=== PATIENT | female | born 1975 ===

== ENCOUNTER 2021-04-25 14:05 | Outpatient (REF) | payer OTHER, SELFPAY ==
--- NOTE | 2021-04-25 17:43 | PFT_ITS ---
Forced vital capacity and FEV1 are both moderately reduced. ITB39-56, and MVV are markedly reduced. Post-bronchodilator therapy, there is significant improvement in all parameters. Total lung capacity is slightly decreased. Residual volume normal. Diffusion capacity normal. CONCLUSION: Moderately severe obstructive airway disorder. There is significant response to bronchodilator therapy. These findings are consistent with asthma/COPD overlap syndrome. Clinical correlation is recommended. MD FRANCISCO Husain/RAJWINDER / [phone]
== END 2021-04-25 14:06 | disposition home or self-care (01) ==
LOC: HO.RESP 14:05
PROVIDERS: Visit Provider Nurse Practitioner Family
DX: J45.909 Unspecified asthma, uncomplicated (principal)
CPT/HCPCS: 94060; 94727; 94729

== ENCOUNTER → 2021-05-24 15:07 | Outpatient (BNVA) | payer OTHER, SELFPAY | PROVIDERS: PCP Nurse Practitioner Family; Visit Provider Internal Medicine ==

== ENCOUNTER → 2021-07-25 14:59 | Outpatient (BNVA) | payer OTHER, SELFPAY | PROVIDERS: PCP Nurse Practitioner Family; Visit Provider Internal Medicine ==

== ENCOUNTER 2021-10-31 15:51 | Outpatient (REF) | payer OTHER, SELFPAY ==
--- NOTE | ~2021-10-31 | XR_ITS ---
EXAMINATION: XR CHEST CLINICAL INFORMATION: COPD COMPARISON: None TECHNIQUE: 2 views of the chest were obtained. FINDINGS: No significant abnormality is noted involving the heart, lungs, mediastinum, bony thorax or soft tissues. XR/XR chest 2V IMPRESSION: Unremarkable examination.
== END 2021-10-31 15:52 | disposition home or self-care (01) ==
LOC: HO.HMGCX 15:51
PROVIDERS: PCP Nurse Practitioner Family; Visit Provider Nurse Practitioner Family
DX: J44.9 Chronic obstructive pulmonary disease, unspecified (principal); J30.9 Allergic rhinitis, unspecified; J06.9 Acute upper respiratory infection, unspecified
CPT/HCPCS: 71046

== ENCOUNTER 2021-11-01 10:35 | Outpatient (REF) | payer OTHER, SELFPAY ==
[2021-11-01 11:28] LABS: MANUAL DIFF FLAG NO
[2021-11-01 11:43] LABS: Basophils Absolute Auto 0.1 X10*3/uL (0.0-0.2); Eosinophils Absolute Auto 0.5 X10*3/uL (0.0-0.4); Eosinophils Percent Auto 7.1 % (0-4); Hematocrit 38.5 % (37.0-47.0); Hemoglobin 12.5 g/dl (12.0-16.0); Imm Gran Abs Auto 0.03 X10*3/uL (0.00-0.03); Imm Gran Pct Auto 0.4 % (0.0-0.4); Lymphocytes Absolute Auto 1.2 X10*3/uL (1.2-4.9); Lymphocytes Percent Auto 16.6 % (20-40); Mean Corpuscular HGB Conc 32.5 g/dl (31.0-35.0); Mean Corpuscular Hemoglobin 27.7 pg (27.0-33.0); Mean Corpuscular Volume 85.2 fL (80.0-98.0); Mean Platelet Volume 10.3 fL (9.4-12.3); Monocytes Absolute Auto 0.9 X10*3/uL (0.1-1.2); Monocytes Percent Auto 13.1 % (2-11); Neutrophils Absolute Auto 4.4 x10*3/uL (2.0-8.3); Neutrophils Percent Auto 61.8 % (45-73); Platelet Count 296 X10*3/uL (160-400); Red Blood Count 4.52 X10*6/uL (4.20-5.50); Red Cell Distribution Width 13.8 % (11.0-16.0); White Blood Count 7.2 X10*3/uL (4.8-10.8)
[2021-11-01 12:18] LABS: Alanine Aminotransferase 20 U/L (0-31); Albumin Level 3.9 g/dL (3.5-5.0); Alkaline Phosphatase 63 U/L (39-117); Anion Gap 11 (12-20); Aspartate Amino Transferase 14 U/L (5-31); Bilirubin Total 0.7 mg/dL (0.0-1.0); Blood Urea Nitrogen 8 mg/dL (9-16); Calcium 9.2 mg/dL (8.4-10.2); Carbon Dioxide 24 mmol/L (22-29); Chloride 108 mmol/L (96-108); Cholesterol 157 mg/dL; Estimated Glomerular Filt Rate > 60; Glucose Fasting 122 mg/dL (60-99); HDL Cholesterol 60 mg/dL; LDL Cholesterol Calculated 82 mg/dl; Sodium 139 mmol/L (135-145); Total Protein 7.3 g/dL (6.5-8.0); Triglycerides 78 mg/dL
[2021-11-01 12:19] LABS: TSH reflex Free T4 1.99 uIU/mL (0.32-4.0)
[2021-11-01 14:05] LABS: Appearance Urine CLOUDY; Color Urine YELLOW; Glucose Urine UA NEG (NEG); Leukocyte Esterase Urine NEG (NEG); Nitrite Urine NEG (NEG); Specific Gravity - Urine >= 1.030 (1.005-1.025); Urine Blood NEG (NEG); Urine Ketones NEG (NEG); Urine Protein TRACE MG/DL (NEG-TRACE)
== END 2021-11-01 10:36 | disposition home or self-care (01) ==
LOC: HO.HMGCLDS 10:35
PROVIDERS: PCP Nurse Practitioner Family; Visit Provider Nurse Practitioner Family
DX: J44.9 Chronic obstructive pulmonary disease, unspecified (principal); J30.9 Allergic rhinitis, unspecified; J06.9 Acute upper respiratory infection, unspecified
CPT/HCPCS: 36415; 80053; 80061; 81003; 84443; 85025

== ENCOUNTER 2022-01-10 11:58 | Outpatient (REF) | payer OTHER, SELFPAY ==
--- NOTE | ~2022-01-10 | MM_ITS ---
EXAMINATION: MM SCREENING DIGITAL BREAST TOMOSYNTHESIS, BILATERAL CLINICAL INFORMATION: Screening. Asymptomatic. The lifetime risk of breast cancer based on the Tyrer-Cuzick Model is 11.2%. COMPARISON: Mammography: None TECHNIQUE: Digital breast tomosynthesis is performed in both the craniocaudal and mediolateral oblique views along with computer-aided detection (CAD). Synthesized 2D images are generated from the tomosynthesis. FINDINGS: The breasts are almost entirely fatty (ACR BI-RADS breast composition Category a). There are no significant masses, abnormal calcifications, or other abnormalities. MM/MM tomosynthesis screening BI IMPRESSION: No mammographic evidence of malignancy. ASSESSMENT: BI-RADS 1: Negative RECOMMENDATION: Routine annual mammography screening. This patient's information was entered into a reminder system with a target due date for their next mammogram.
== END 2022-01-10 11:59 | disposition home or self-care (01) ==
LOC: HO.MAMMO 11:58
PROVIDERS: Visit Provider Nurse Practitioner Family
DX: Z12.31 Encounter for screening mammogram for malignant neoplasm of breast (principal)
CPT/HCPCS: 77063; 77067

== ENCOUNTER → 2022-11-14 13:50 | Outpatient (BNVA) | payer BC, SELFPAY | PROVIDERS: PCP Nurse Practitioner Family; Visit Provider Internal Medicine ==

== ENCOUNTER 2023-04-17 11:07 | Outpatient (AMB) | payer BC, SELFPAY ==
[2023-04-17 11:16] VITALS: BP 130/78; PULSE 95; O2SAT 98; BMI 38.2
--- NOTE | 2023-04-17 11:16 | A.OFFVIS_ITS ---
Intake Vital Signs 04/17/23 11:16 Height 5 ft 2 in Weight 209 lb BMI 38.2 BP 130/78 Blood Pressure Location Lt brachial Position Sitting Pulse 95 Pulse Source Pulse Oximeter Pulse Oximetry (%) 98 Oxygen Delivery Method Room Air Intake Visit Reasons: Asthma Intake Note: pt is here for follow up and feels good. Department Assistant Required: No Allergies amoxicillin Adverse Reaction (Unknown, Verified 04/17/23 11:24) yeast infection Medication List - Last Reconciled 04/17/23 by Eunice Isidro MD albuterol sulfate 90 mcg/actuation 2 puffs PO Q6H PRN amlodipine 5 mg PO DAILY 90 days bisacodyl (Dulcolax (bisacodyl)) 10 mg (2 x 5 mg) PO ONCE 1 day cetirizine (Zyrtec) 10 mg PO DAILY PRN fluticasone propion-salmeterol 250-50 mcg/dose (Advair Diskus) 1 ea PO BID fluticasone propionate 50 mcg/actuation (Flonase Allergy Relief) 1 spray intranasal BID PRN hydrochlorothiazide 12.5 mg PO DAILY 90 days ipratropium-albuterol 0.5 mg-3 mg(2.5 mg base)/3 mL 3 mL inhalation Q6-8H PRN montelukast 10 mg PO BEDTIME nebulizer accessories Q6hrs, prn for wheezing/SOB polyethylene glycol 3350 (Miralax) 238 grams PO ONCE 1 day Do you need a note to return to daycare/school/sports/work: No HPI Asthma HPI Details 48 YEARS OLD FEMALE, A KNOWN CASE OF AST HMA/COPD AND ALLERGIC RHINITIS, HER 2 CATS AT HOME ,BEING THE MAIN TRIGGER COMES FOR FOLLOW-UP AFTER 6 MONTHS. SHE HAS BEEN VERY STABLE WITHOUT ANY INCREASE IN THE SYMPTOMS. GETS MILD NASAL CONGESTION OFF AND ON. GETS MILD SHORTNESS OF BREATH ON WALKING UP HILL OR. CLIMBING STAIRS HAS HAD NO ACUTE ATTACKS OF WHEEZING. SHE TRIES TO KEEP THE CATS AT A DISTANCE BUT IN THE HOUSE. [facility] Medical History COPD with asthma Allergic rhinitis Social History Housing: House Patient Tobacco Use Status: Former Tobacco user e-Cigarette/Vaping Use: Never Used Second Hand Smoke Exposure: No service: No Current occupational status: employed Current occupation: retail mgr Current occupational exposures/hazards: Yes Cognitive needs: No Hearing needs: No Vision needs: No Review of Systems Const All systems reviewed & are unremarkable except as noted in HPI and below Eyes Reports no additional complaints ENT Reports nasal congestion (MILD ALMOST ON DAILY BASIS) Card Denies chest pain, Denies irregular heart rhythm and Denies leg edema Resp Reports as per HPI GI Reports no additional complaints Reports no additional complaints Musc Reports no additional complaints Skin/Breast Reports system reviewed and no additional complaints, except as documented Neuro Reports no additional complaints Psych Reports no additional complaints Physical Exam Vital Signs: Last Vital Signs Pulse 95 04/17/23 11:16 BP 130/78 04/17/23 11:16 Pulse Ox 98 04/17/23 11:16 Oxygen Delivery Method Room Air 04/17/23 11:16 BMI result Body Mass Index 38.2 Const General: healthy appearing (Except for being overweight), comfortable, no acute distress, alert and awake Orientation/consciousness: patient oriented x3 HEENT Head: Yes normal to inspection General nose exam: No nasal polyps present, No nasal discharge present and Other nasal findings present (Mild nasal congestion) Face and sinus: Yes sinuses nontender Mouth: oropharynx normal Throat: Yes posterior oropharynx normal Eyes General: appearance normal, both eyes and all related structures Neck Neck: Yes normal visual inspection, Yes no lymphadenopathy, Yes trachea midline and Yes no JVD Thyroid: Thyroid normal Chest Chest palpation & inspection: normal inspection of the chest, normal palpation of entire chest wall and no tenderness Resp Other: Percussion note resonant, has good breath sounds on both sides. GOOD BREATH SOUNDS ON BOTH SIDES, NO WHEEZES OR CREPITATIONS ARE HEARD . Cardio Palpation: normal PMI Rate: regular rate Rhythm: regular rhythm Heart sounds: no gallops and no murmurs Peripheral pulses: Peripheral pulses 2+ throughout GI Palpation (GI): Soft to palpation, nontender, No hepatosplenomegaly present and no masses Auscultation: normal bowel sounds Back/Spine/Pelvis Thoracic/Lumbar Spine: thoracic and lumbar spine normal to inspection Skin General skin exam: no rashes or lesions noted Neuro General: patient oriented x3 and no focal motor deficits Cranial nerves: Yes CN's II-XII intact bilaterally Extrem General: Yes normal to inspection, Yes no clubbing, cyanosis or edema and Yes no calf tenderness Psych Appearance: grossly normal and well kempt Speech and movement: Normal speech and movement present Assessment & Plan Assessment & Plan (1) COPD with asthma: Comment: This patient has long-standing history of bronchial asthma, Which has now phased into chronic obstructive pulmonary disease. This is also in most part perpetuated by having cats in the house, plus other non identified triggers. TX : Again advised to keep the cats away , as much as possible, Advair, 250-50 1 inhalation b.i.d. Albuterol HFA 2 puffs Q 4-6 hours p.r.n. Montelukast 10 mg daily. Code(s): J44.9 - Chronic obstructive pulmonary disease, unspecified (2) Allergic rhinitis: Comment: This patient has long-standing history of allergic rhinitis, Most prominent trigger is pets ( 2 cats ) in the house. May have other multiple triggers also. I have given her a list of possible triggers that she should watch for. Patient is not inclined to remove the cats from the house. Meds : Flonase 2 spray each nostril daily Zyrtec 10 mg once a day only PRN . Also continue Montelukast 10 mg daily. Code(s): J30.9 - Allergic rhinitis, unspecified Coding Level of Care Code Est Pt Level 3 (88105) Diagnoses COPD with asthma J44.9 Allergic rhinitis J30.9
== END 2023-04-17 11:32 | disposition home or self-care (01) ==
PROVIDERS: PCP Nurse Practitioner Family; Visit Provider Internal Medicine
DX: J44.9 Chronic obstructive pulmonary disease, unspecified (principal); J30.9 Allergic rhinitis, unspecified
CPT/HCPCS: 99213

== ENCOUNTER → 2023-04-17 11:15 | Outpatient (BNV) | payer BC, SELFPAY | PROVIDERS: PCP Nurse Practitioner Family; Visit Provider Radiology Diagnostic Radiology | DX: Z12.31 Encounter for screening mammogram for malignant neoplasm of breast (principal) | CPT/HCPCS: 77063; 77067 ==

== ENCOUNTER 2023-04-17 11:37 | Outpatient (REF) | payer BC, SELFPAY ==
--- NOTE | ~2023-04-17 | MM_ITS ---
EXAMINATION: MM SCREENING DIGITAL BREAST TOMOSYNTHESIS, BILATERAL CLINICAL INFORMATION: Screening. Asymptomatic. COMPARISON: Mammography: This study is compared with prior exams dating back to 2021. TECHNIQUE: Digital breast tomosynthesis is performed in both the craniocaudal and mediolateral oblique views along with computer-aided detection (CAD). Synthesized 2D images are generated from the tomosynthesis. FINDINGS: The breasts are almost entirely fatty (ACR BI-RADS breast composition Category a). There are no significant masses, abnormal calcifications, or other abnormalities. MM/MM tomosynthesis screening BI IMPRESSION: No mammographic evidence of malignancy. ASSESSMENT: BI-RADS BI-RADS 1 - Negative RECOMMENDATION: Routine annual mammography screening. 1 year F/U This examination should not preclude the clinical evaluation of a suspicious palpable abnormality. This patient's information was entered into a reminder system with a target due date for their next mammogram.
== END 2023-04-17 11:38 | disposition home or self-care (01) ==
LOC: HO.MAMMO 11:37
PROVIDERS: PCP Nurse Practitioner Family; Visit Provider Nurse Practitioner Family
DX: Z12.31 Encounter for screening mammogram for malignant neoplasm of breast (principal)
CPT/HCPCS: 77063; 77067

== ENCOUNTER 2023-05-30 08:18 | Outpatient (AMB) | payer BC, SELFPAY ==
--- NOTE | 2023-05-30 08:25 | A.OFFPC_ITS ---
Vital Signs 05/30/23 08:33 Height 5 ft 2 in Weight 211 lb BMI 38.6 BP 120/76 Blood Pressure Location Rt brachial Position Sitting Pulse 67 Pulse Source Pulse Oximeter Pulse Oximetry (%) 97 Oxygen Delivery Method Room Air Intake Visit Reasons: PE/overdue Intake Note: Patient here for physical exam. Pt would like to talk about rash that appears on chest from wearing necklaces which are real gold, she has also been feeling exhausted and she also would like to talk about left arm sharp pain that happens on and off. Last Pap: unknown last mammo: 04/2023 at [facility] [place] Allergies amoxicillin Adverse Reaction (Unknown, Verified 05/30/23 08:36) yeast infection Medication List - Last Reconciled 05/30/23 by Jose Buchanan, [facility]- albuterol sulfate 90 mcg/actuation 2 puffs PO Q6H PRN amlodipine 5 mg PO DAILY 90 days betamethasone dipropionate 0.05% 1 appl topical BID PRN 14 days bisacodyl (Dulcolax (bisacodyl)) 10 mg (2 x 5 mg) PO ONCE 1 day cetirizine (Zyrtec) 10 mg PO DAILY PRN fluticasone propion-salmeterol 250-50 mcg/dose (Advair Diskus) 1 ea PO BID fluticasone propionate 50 mcg/actuation (Flonase Allergy Relief) 1 spray intranasal BID PRN hydrochlorothiazide 12.5 mg PO DAILY 90 days ipratropium-albuterol 0.5 mg-3 mg(2.5 mg base)/3 mL 3 mL inhalation Q6-8H PRN montelukast 10 mg PO BEDTIME nebulizer accessories Q6hrs, prn for wheezing/SOB polyethylene glycol 3350 (Miralax) 238 grams PO ONCE 1 day Tobacco use date assessed: 05/30/23 Dental Screening Dental Screen Date: 05/30/23 Did you have a dental visit in the last 12 months?: Yes Did you have a dental problem in the last 6 months where you did not have access to dental care?: No Was dental information given to patient?: Patient has dentist HPI PE/overdue HPI Details Pt is here for a PE. Will order labs. Mammo is up to date. 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 Pt has not heard from GI about scheduling her colon screen, will contact GI office. Pt reports dermatitis to her upper chest and left anti helix. Will send betamethasone. [facility] Medical History COPD with asthma Allergic rhinitis Social History Housing: House Patient Tobacco Use Status: Former Tobacco user e-Cigarette/Vaping Use: Never Used Second Hand Smoke Exposure: No service: No Current occupational status: employed Current occupation: [employer] Current occupational exposures/hazards: Yes Cognitive needs: No Hearing needs: No Vision needs: No Questionnaire PHQ-9 Over the last 2 weeks, how often have you been bothered by any of the following problems? 1. Little interest or pleasure in doing things: not at all 2. Feeling down, depressed, or hopeless: not at all 3. Trouble falling or staying asleep, or sleeping too much: several days 4. Feeling tired or having little energy: nearly every day 5. Poor appetite or overeating: not at all 6. Feeling bad about yourself - or that you are a failure or have let yourself or your family down: not at all 7. Trouble concentrating on things, such as reading the newspaper or watching television: not at all 8. Moving or speaking so slowly that other people could have noticed. Or the opposite - being so fidgety or restless that you have been moving around a lot more than usual: not at all 9. Thoughts that you would be better off or of hurting yourself in some way: not at all Total score: 4 Depression Screening Interpretation: Negative Depression Screening Done: Yes 22138 - PHQ-9 Billing: Yes Source: Developed by Drs. Brian Roblero, Melody Cates, Tray Mensah and colleagues, with an educational carlos a from [employer]. Thrive Questionnaire Date Thrive assessed: 05/30/23 I am a: Patient What is your living situation today?: I have a steady place to live Within the past 12 months, did the food you bought not last and you didn't have the money to get more?: Never true Within the past 12 months, did you worry whether your food would run out before you got money to buy more?: Never true Do you have trouble paying for medicines?: No Do you have trouble getting transportation to medical appointments?: No Do you have trouble paying your heating and electricity bill?: No Do you have trouble with day-to-day activities such as bathing, preparing meals, shopping, managing finances, etc.?: No Are you currently unemployed and looking for a job?: No Are you interested in more education?: No AUDIT C Alcohol Use Questionnaire (AUDIT-C) 1. How often do you have a drink containing alcohol?: Never 3. How often do you have six or more drinks on one occasion?: Never Total Score: 0 Score Reviewed/Action Taken: No JOSE L-7 AMB Questionnaire OJSE L-7 Date JOSE L - 7 assessed: 05/30/23 Feeling nervous, anxious, or on edge: 1 = Several days Not being able to stop or control worryin = Not at all Worrying too much about different things: 1 = Several days Trouble relaxin = Not at all Being so restless that it is hard to sit still: 0 = Not at all Becoming easily annoyed or irritable: 0 = Not at all Feeling afraid as if something awful might happen: 0 = Not at all Total JOSE L-7 score (0-4 normal; 5-9 mild; 10-14 moderate; 15-21 severe): 2 Source: Developed by Drs. Brian Roblero, Melody Cates, Tray Mensah and colleagues, with an educational carlos a from [employer]. JOSE L-7 Assessment Billing JOSE L-7 Assessment Tool: JOSE L-7 Assessment 14507 ACT Questionnaire In the past 4 weeks, how much of the time did your asthma keep you from getting as much done at work, school or at home?: All of the time During the past 4 weeks, how often have you had shortness of breath?: 3-6 times a week During the past 4 weeks, how often did your asthma symptoms wake you up at night or earlier than usual in the morning?: 2-3 nights a week During the past 4 weeks, how often have you had to use your rescue inhaler or nebulizer medication?: More than 3 times per day How would you rate your asthma control during the past 4 weeks?: Not controlled at all Score: 8 Review of Systems Const Denies chills and Denies fever(s) Eyes Denies blurry vision ENT Denies vertigo, Denies dizziness and Denies sore throat Card Denies chest pain at rest, Denies chest pain with activity, Denies diaphoresis, Denies dyspnea and Denies dyspnea on exertion Resp Denies cough, Denies dyspnea, Denies dyspnea on exertion and Denies wheezing GI Denies abdominal pain, Denies melena, Denies hematochezia, Denies constipation, Denies diarrhea and Denies loose stools Denies hematuria Musc Denies numbness and Denies tingling Skin/Breast Denies lesions Neuro Denies vertigo, Denies dizziness, Denies numbness and Denies tingling Psych Denies anxiety, Denies depression, Denies homicidal ideation, Denies suicidal ideation and Denies other (substance abuse) Aller/Immun Denies wheezing Physical exam (Primary Care) Vital Signs: Last Vital Signs Pulse 67 05/30/23 08:33 BP 120/76 05/30/23 08:33 Pulse Ox 97 05/30/23 08:33 Oxygen Delivery Method Room Air 05/30/23 08:33 BMI result Body Mass Index 38.6 Tobacco/Smoking Status: Tobacco use Status Tobacco use date assessed 05/30/23 05/30/23 08:39 Patient Tobacco Use Status Former Tobacco user 05/30/23 08:27 e-Cigarette/Vaping Use Never Used 05/30/23 08:27 PHQ-9: PHQ-9 Score PHQ-9: Total score 4 05/30/23 09:13 Depression Screening Interpretation: Negative Thrive Assessment: Date of Thrive Assessment Date Thrive assessed 05/30/23 05/30/23 09:04 Const General: cooperative Nutritional Appearance: obese Orientation/consciousness: patient oriented x3 HENMT Head: Yes normal to inspection, Yes normocephalic and Yes atraumatic Ears: TM's normal bilaterally Eyes General: appearance normal, both eyes and all related structures Alignment and Position: alignment normal and position normal Neck Neck: Yes normal visual inspection and Yes no lymphadenopathy Thyroid: Thyroid normal Resp Other: faint scattered wheezes Effort & Inspection: normal respiratory effort Cardio Rate: regular rate Rhythm: regular rhythm Heart sounds: S1 normal heart sound present, S2 normal heart sound present and no murmurs GI Palpation (GI): Soft to palpation and nontender Auscultation: normal bowel sounds Skin Other: faint dermatitis to upper chest, left anti helix with macular erythematous dermatitis Neuro General: patient oriented x3, moves all extremities, no focal motor deficits and deep tendon reflexes 2+ bilaterally Romberg Test: Negative Psych Appearance: grossly normal Mental Status: mental status grossly normal Speech and movement: Normal speech and movement present Affect: normal affect Attitude: cooperative Thought process: Normal thought process present Thought content: Normal thought content present Insight: Good insight present (Psych) Judgement: Good judgement present (Psych) Assessment and Plan Assessment & Plan (1) Physical exam: Code(s): Z00.00 - Encounter for general adult medical examination without abnormal findings Plan: Labs ordered (2) Dermatitis: Code(s): L30.9 - Dermatitis, unspecified Plan: Betamethasone sent Plan The patient agreed to the use of a medical lead for this encounter. Scribed for [facility] by Shena Thomas medical lead, on 05/30/2023 at 08:40 EST. Medications: New betamethasone dipropionate 0.05% 1 appl topical BID 14 days PRN 45 grams 2RF skin irritation Coding Level of Care Code Est Pt Prev Care 40-64y(37167) Diagnoses Physical exam Z00.00 Dermatitis L30.9 Additional Codes JOSE L-7 Assessment Billing - JOSE L-7 Assessment Tool: JOSE L-7 Assessment 20965 ([id number])
[2023-05-30 08:33] VITALS: BP 120/76; PULSE 67; O2SAT 97; BMI 38.6
== END 2023-05-30 09:06 | disposition home or self-care (01) ==
PROVIDERS: PCP Nurse Practitioner Family; Visit Provider Nurse Practitioner Family
DX: Z00.00 Encounter for general adult medical examination without abnormal findings (principal); L30.9 Dermatitis, unspecified
CPT/HCPCS: 99396

== ENCOUNTER 2024-01-08 13:44 | Outpatient (AMB) | payer BC, SELFPAY ==
--- NOTE | 2024-01-08 13:54 | MHC.OFFVIS ---
Vital Signs 01/08/24 13:55 Height 5 ft 2 in Weight 212 lb 11.937 oz BMI 38.9 BP 110/78 Blood Pressure Location Lt brachial Position Sitting Pulse 96 Pulse Source Pulse Oximeter Pulse Oximetry (%) 98 Oxygen Delivery Method Room Air Intake Visit Reasons: Asthma Intake Note: pt is here for follow up and states she is feeling like she is not rested in am, she snores, witnessed snoring. Pin Inserter Regulator Required: No Allergies isopropyl alcohol Adverse Reaction (Severe, Verified 01/08/24 14:03) numbness wherever it touches the skin amoxicillin Adverse Reaction (Unknown, Verified 01/08/24 14:03) yeast infection Medication List - Last Reconciled 01/08/24 by Eunice Isidro MD albuterol sulfate 90 mcg/actuation 2 puffs PO Q6H PRN amlodipine 5 mg PO DAILY 90 days betamethasone dipropionate 0.05% 1 appl topical BID PRN 14 days bisacodyl (Dulcolax (bisacodyl)) 10 mg (2 x 5 mg) PO ONCE 1 day bisacodyl (Dulcolax (bisacodyl)) 20 mg (4 x 5 mg) PO ONCE 1 day cetirizine (Zyrtec) 10 mg PO DAILY PRN fluticasone propion-salmeterol 250-50 mcg/dose (Advair Diskus) 1 ea PO BID fluticasone propionate 50 mcg/actuation (Flonase Allergy Relief) 1 spray intranasal BID PRN hydrochlorothiazide 12.5 mg PO DAILY 90 days ipratropium-albuterol 0.5 mg-3 mg(2.5 mg base)/3 mL 3 mL inhalation Q6-8H PRN montelukast 10 mg PO BEDTIME nebulizer accessories Q6hrs, prn for wheezing/SOB polyethylene glycol 3350 (Miralax) 238 grams PO ONCE 1 day polyethylene glycol 3350 (Miralax) 238 grams PO ONCE 1 day Do you need a note to return to daycare/school/sports/work: No HPI HPI Asthma: Details: 48 YEARS OLD FEMALE IS HERE FOR FOLLOW-UP MAINLY FOR HER CHRONIC BRONCHIAL ASTHMA. SHE ALSO HAS MILD ALLERGIC RHINITIS WHICH REMAINS WELL CONTROLLED. ASTHMA ALSO HAS BEEN WELL CONTROLLED AND SHE NEEDS TO USE, ALBUTEROL HFA ONLY ONCE IN A WHILE. SIMILARLY SHE NEEDS TO USE FLONASE ONLY ONCE IN A WHILE NOT EVERY DAY. CURRENTLY SHE IS USING WIXELA 250-50 2 PUFFS 1 INHALATION B.I.D.., AND ALBUTEROL HFA 2 PUFFS Q 6 HOURS P.R.N.. SHE ALSO USES DUONEB UPDRAFT WHICH SHE HAS AT HOME BUT ONLY RARELY. PATIENT FOR ALLERGY ISSUES SHE IS ON MONTELUKAST. 10 MG DAILY SHE REMAINS GROSSLY OVERWEIGHT, HAD HIS SLEEP STUDY AND THE SLEEP LAB IN 2007 WHICH WAS NEGATIVE FOR SLEEP APNEA, TODAY AGAIN SHE IS COMPLAINING OF NONRESTORATIVE SLEEP, WHEN SHE WAKES UP IN THE MORNING SHE FEELS TIRED. AND SLEEPY HOWEVER SHE KEEPS HERSELF BUSY IN WORK BUT WHEN COMES HOME AT 04:00 O'CLOCK SHE GOES TO SLEEP . WHEN SHE IS HOME ESPECIALLY ON THE WEEKENDS SHE DEFINITELY FEELS SLEEPY IF SHE IS SITTING AND READING OR WATCHING TV OR JUST LYING DOWN IN THE AFTERNOON. EPWORTH SLEEPINESS SCALE COMES TO 12. [facility] Medical History (Updated 01/08/24 @ 14:28 by Eunice Isidro MD) Somnolence, daytime Snoring Obesity (BMI 35.0-39.9 without comorbidity) COPD with asthma Allergic rhinitis Social History Housing: House Patient Tobacco Use Status: Former Tobacco user e-Cigarette/Vaping Use: Never Used Second Hand Smoke Exposure: No service: No Current occupational status: employed Current occupation: retail mgr Current occupational exposures/hazards: Yes Cognitive needs: No Hearing needs: No Vision needs: No Review of Systems Const All systems reviewed & are unremarkable except as noted in HPI and below Eyes Reports no additional complaints ENT Reports nasal congestion (MILD ALMOST ON DAILY BASIS) Card Denies chest pain, Denies irregular heart rhythm and Denies leg edema Resp Reports as per HPI GI Reports no additional complaints Reports no additional complaints Musc Reports no additional complaints Skin/Breast Reports system reviewed and no additional complaints, except as documented Neuro Reports no additional complaints Psych Reports no additional complaints Physical Exam Const General: healthy appearing (Except for being overweight), comfortable, no acute distress, alert and awake Orientation/consciousness: patient oriented x3 HEENT Head: Yes normal to inspection General nose exam: No nasal polyps present, No nasal discharge present and Other nasal findings present (Mild nasal congestion) Face and sinus: Yes sinuses nontender Mouth: oropharynx abnormals (OROPHARYNX IS CROWDED, MALLAMPATI CLASS 4) Throat: Yes posterior oropharynx normal Eyes General: appearance normal, both eyes and all related structures Neck Neck: Yes normal visual inspection, Yes no lymphadenopathy, Yes trachea midline, Yes no JVD and Yes other (NECK CIRCUMFERENCE 15 IN) Thyroid: Thyroid normal Chest Chest palpation & inspection: normal inspection of the chest, normal palpation of entire chest wall and no tenderness Resp Other: Percussion note resonant, has good breath sounds on both sides. NO WHEEZES OR CREPITATIONS ARE HEARD . Cardio Palpation: normal PMI Rate: regular rate Rhythm: regular rhythm Heart sounds: no gallops and no murmurs Peripheral pulses: Peripheral pulses 2+ throughout GI Palpation (GI): Soft to palpation, nontender, No hepatosplenomegaly present and no masses Auscultation: normal bowel sounds Back/Spine/Pelvis Thoracic/Lumbar Spine: thoracic and lumbar spine normal to inspection Skin General skin exam: no rashes or lesions noted Neuro General: patient oriented x3 and no focal motor deficits Cranial nerves: Yes CN's II-XII intact bilaterally Extrem General: Yes normal to inspection, Yes no clubbing, cyanosis or edema and Yes no calf tenderness Psych Appearance: grossly normal and well kempt Speech and movement: Normal speech and movement present Assessment & Plan Assessment & Plan (1) COPD with asthma: Comment: This patient has long-standing history of bronchial asthma, Which has now phased into chronic obstructive pulmonary disease. This is also in most part perpetuated by having cats in the house, plus other non identified triggers. Code(s): J44.9 - Chronic obstructive pulmonary disease, unspecified Category: Medical Plan: [place] : Again advised to keep the cats away , as much as possible, Wixela 250-50 1 inhalation b.i.d. Albuterol HFA 2 puffs Q 4-6 hours p.r.n. Montelukast 10 mg daily. (2) Allergic rhinitis: Comment: This patient has long-standing history of allergic rhinitis, Most prominent trigger is pets ( 2 cats ) in the house. May have other multiple triggers also. I have given her a list of possible triggers that she should watch for. Patient is not inclined to remove the cats from the house. Code(s): J30.9 - Allergic rhinitis, unspecified Category: Medical Plan: Meds : Flonase 2 spray each nostril daily Zyrtec 10 mg once a day only PRN . Also continue Montelukast 10 mg daily. (3) Obesity (BMI 35.0-39.9 without comorbidity): Comment: Remains grossly overweight, this puts her at risk for obstructive sleep apnea. Code(s): E66.9 - Obesity, unspecified Category: Medical Plan: Talked to her about controlling diet and should do exercise daily. (4) Snoring: Comment: Complains of loud snoring at night, as told by. Her boyfriend Code(s): R06.83 - Snoring Category: Medical Plan: This is another indication that she may have sleep apnea, she Plan is to order. A home-based sleep study (5) Somnolence, daytime: Comment: She has significant daytime sleepiness. [place] Sleepiness scale 12/24 Code(s): R40.0 - Somnolence Category: Medical Plan: Discussed with her and she would like to undergo sleep study, which is being ordered. Had a good discussion about obstructive sleep apnea and various options to treat. The best option in her case may be weight loss, Further plans were made after the sleep study is completed. Orders: Orders RT home sleep study Today E66.9 - Obesity, unspecified, R06.83 - Snoring, R40.0 - Somnolence Coding Level of Care Code Est Pt Level 4 (72573) Diagnoses COPD with asthma J44.9 Allergic rhinitis J30.9 Obesity (BMI 35.0-39.9 without comorbidity) E66.9 Snoring R06.83 Somnolence, daytime R40.0
[2024-01-08 13:55] VITALS: BP 110/78; PULSE 96; O2SAT 98; BMI 38.9
== END 2024-01-08 14:18 | disposition home or self-care (01) ==
PROVIDERS: PCP Nurse Practitioner Family; Visit Provider Internal Medicine
DX: J44.9 Chronic obstructive pulmonary disease, unspecified (principal); J30.9 Allergic rhinitis, unspecified; E66.9 Obesity, unspecified; R06.83 Snoring; R40.0 Somnolence
CPT/HCPCS: 99214

== ENCOUNTER → 2024-01-08 13:44 | Outpatient (BNVA) | payer BC, SELFPAY | PROVIDERS: PCP Nurse Practitioner Family; Visit Provider Internal Medicine ==

== ENCOUNTER → 2024-02-25 13:05 | Outpatient (REF) | payer BC, SELFPAY | LOC: HO.SL 13:05 | PROVIDERS: PCP Nurse Practitioner Family; Visit Provider Internal Medicine | DX: Z13.89 Encounter for screening for other disorder (principal) ==

== ENCOUNTER → 2024-04-21 13:01 | Outpatient (REF) | payer BC, SELFPAY | LOC: HO.SL 13:01 | PROVIDERS: PCP Nurse Practitioner Family; Visit Provider Internal Medicine | DX: R40.0 Somnolence (principal); R06.83 Snoring; E66.9 Obesity, unspecified | CPT/HCPCS: 95806 ==

== ENCOUNTER 2024-04-29 15:49 | Outpatient (AMB) | payer BC, SELFPAY ==
[2024-04-29 15:58] VITALS: BP 128/80; PULSE 82; O2SAT 98; BMI 37.7
--- NOTE | 2024-04-29 15:58 | A.OFFVIS_ITS ---
Vital Signs 04/29/24 15:58 Height 5 ft 2 in Weight 206 lb 2.115 oz BMI 37.7 BP 128/80 Blood Pressure Location Rt brachial Position Sitting Pulse 82 Pulse Oximetry (%) 98 Oxygen Delivery Method Room Air Intake Visit Reasons: asthma/karen Translator Interpreter Required: No Game Programmer: Game Programmer offered & declined Accompanied by: Self / Same As Patient Allergies isopropyl alcohol Adverse Reaction (Severe, Verified 04/29/24 16:06) numbness wherever it touches the skin amoxicillin Adverse Reaction (Unknown, Verified 04/29/24 16:06) yeast infection Medication List - Last Reconciled 04/29/24 by Eunice Isidro MD albuterol sulfate 90 mcg/actuation 2 puffs PO Q6H PRN amlodipine 5 mg PO DAILY 90 days betamethasone dipropionate 0.05% 1 appl topical BID PRN 14 days bisacodyl (Dulcolax (bisacodyl)) 10 mg (2 x 5 mg) PO ONCE 1 day bisacodyl (Dulcolax (bisacodyl)) 20 mg (4 x 5 mg) PO ONCE 1 day cetirizine (Zyrtec) 10 mg PO DAILY PRN fluticasone propion-salmeterol 250-50 mcg/dose (Advair Diskus) 1 ea PO BID fluticasone propionate 50 mcg/actuation (Flonase Allergy Relief) 1 spray intranasal BID PRN hydrochlorothiazide 12.5 mg PO DAILY 90 days ipratropium-albuterol 0.5 mg-3 mg(2.5 mg base)/3 mL 3 mL inhalation Q6-8H PRN montelukast 10 mg PO BEDTIME nebulizer accessories Q6hrs, prn for wheezing/SOB polyethylene glycol 3350 (Miralax) 238 grams PO ONCE 1 day polyethylene glycol 3350 (Miralax) 238 grams PO ONCE 1 day Do you need a note to return to daycare/school/sports/work: No HPI HPI asthma/karen: Details: EDALIN 49 YEARS OLD FEMALE GROSSLY OBESE, AND WITH HISTORY OF BRONCHIAL ASTHMA IS HERE FOR FOLLOW-UP, SHE HAD A BOUT OF ACUTE BRONCHITIS WITH INCREASED COUGH AND WHEEZING LAST WEEK, SEEN IN THE URGENT CARE AND PRESCRIBED SHORT COURSE OF PREDNISONE AND Z-MEGAN. SHE HAS COMPLETED THIS COURSE AND FEELS BETTER, BUT STILL HAS MILD RESIDUAL COUGH. SHE CONTINUES TO USE HER WIXELA 250-50 B.I.D., USES FLONASE DAILY, AND ALSO CETIRIZINE 10 MG ONCE A DAY P.R.N. SLEEP REMAINS DISTURBED , DUE TO HEAVY SNORING, AND HAS ONLY MILD DAYTIME SLEEP INESS. HOME-BASED SLEEP STUDY WAS DONE OVER THE WEEKEND AND THE RESULTS WILL BE DESCRIBED BELOW. [facility] Medical History (Updated 04/29/24 @ 16:23 by Eunice Isidro MD) KAREN (obstructive sleep apnea) Somnolence, daytime Snoring Obesity (BMI 35.0-39.9 without comorbidity) COPD with asthma Allergic rhinitis Social History (Updated 04/29/24 @ 16:02 by Shabnam Goode LPN) Housing: House Patient Tobacco Use Status: Former Tobacco user e-Cigarette/Vaping Use: Never Used Second Hand Smoke Exposure: No service: No Current occupational status: employed Current occupation: retail [employer] Current occupational exposures/hazards: Yes Cognitive needs: No Hearing needs: No Vision needs: No Review of Systems Const All systems reviewed & are unremarkable except as noted in HPI and below Eyes Reports no additional complaints ENT Reports nasal congestion (MILD ALMOST ON DAILY BASIS) Card Denies chest pain, Denies irregular heart rhythm and Denies leg edema Resp Reports as per HPI GI Reports no additional complaints Reports no additional complaints Musc Reports no additional complaints Skin/Breast Reports system reviewed and no additional complaints, except as documented Neuro Reports no additional complaints Psych Reports no additional complaints Physical Exam Vital Signs: Last Vital Signs Pulse 82 04/29/24 15:58 BP 128/80 04/29/24 15:58 Pulse Ox 98 04/29/24 15:58 Oxygen Delivery Method Room Air 04/29/24 15:58 BMI result Body Mass Index 37.7 Const General: healthy appearing (Except for being overweight), comfortable, no acute distress, alert and awake Orientation/consciousness: patient oriented x3 HEENT Head: Yes normal to inspection General nose exam: No nasal polyps present, No nasal discharge present and Other nasal findings present (Mild nasal congestion) Face and sinus: Yes sinuses nontender Mouth: oropharynx abnormals (OROPHARYNX IS CROWDED, MALLAMPATI CLASS 4) Throat: Yes posterior oropharynx normal Eyes General: appearance normal, both eyes and all related structures Neck Neck: Yes normal visual inspection, Yes no lymphadenopathy, Yes trachea midline, Yes no JVD and Yes other (NECK CIRCUMFERENCE 15 IN) Thyroid: Thyroid normal Chest Chest palpation & inspection: normal inspection of the chest, normal palpation of entire chest wall and no tenderness Resp Other: Percussion note resonant, has good breath sounds on both sides. A few fine inspiratory wheezes heard over the upper part of the chest, no crepitations. Cardio Palpation: normal PMI Rate: regular rate Rhythm: regular rhythm Heart sounds: no gallops and no murmurs Peripheral pulses: Peripheral pulses 2+ throughout GI Palpation (GI): Soft to palpation, nontender, No hepatosplenomegaly present and no masses Auscultation: normal bowel sounds Back/Spine/Pelvis Thoracic/Lumbar Spine: thoracic and lumbar spine normal to inspection Skin General skin exam: no rashes or lesions noted Neuro General: patient oriented x3 and no focal motor deficits Cranial nerves: Yes CN's II-XII intact bilaterally Extrem General: Yes normal to inspection, Yes no clubbing, cyanosis or edema and Yes no calf tenderness Psych Appearance: grossly normal and well kempt Speech and movement: Normal speech and movement present Results Reviewed Results Reviewed: Home-based sleep study. Total sleep time AHI 6.3, supine AHI 10, snoring for 62% of the sleep time. Assessment & Plan Assessment & Plan (1) Obesity (BMI 35.0-39.9 without comorbidity): Comment: Remains grossly overweight, this puts her at risk for obstructive sleep apnea. Code(s): E66.9 - Obesity, unspecified Category: Medical Plan: Talked about the weight and advise that she should lose about 10 lb at lease by the next visit. (2) KAREN (obstructive sleep apnea): Comment: Sleep study shows that she does have obstructive sleep apnea but mild with total sleep time AHI 6.3. Is mostly positional. Code(s): G47.33 - Obstructive sleep apnea (adult) (pediatric) Category: Medical Plan: Discussed about the treatment plan and because her KAREN is mild and mostly positional she should try conservative measures to start with. LOSE ABOUT 10 LB OF WEIGHT. TRY TO SLEEP IN LATERAL POSITION, MAY USE A WEDGE OR A LARGE PILLOW IN THE MIDDLE OF THE BED. WILL RECHECK IN 3 MONTHS AND IF SHE REMAINS SYMPTOMATIC THEN THE NEXT STEP WOULD BE TO START HER ON CPAP THERAPY. (3) Allergic rhinitis: Comment: This patient has long-standing history of allergic rhinitis, Most prominent trigger is pets ( 2 cats ) in the house. May have other multiple triggers also. I have given her a list of possible triggers that she should watch for. Patient is not inclined to remove the cats from the house. Code(s): J30.9 - Allergic rhinitis, unspecified Category: Medical Plan: CONTINUE FLONASE NASAL SPRAY 2 SPRAY IN EACH NOSTRIL DAILY AT NIGHT MAY TAKES ZYRTEC 10 MG HALF OR 1 TABLET ONCE A DAY P.R.N. (4) Asthma: Comment: Bronchial asthma goes along with allergic rhinitis. Two cats in the house seem to be the most likely cause of her bronchial asthma. As she would not get rid of the cats I advised that at least keep them out of the BED ROOM . Code(s): J45.909 - Unspecified asthma, uncomplicated Category: Medical Plan: Meds: Advair 250-50 1 inhalation ,use BID . regularly Montelukast 10 mg once a day . ProAir 2 puffs Q 4-6 hours p.r.n..SCRIPT SENT Coding Level of Care Code Est Pt Level 3 (10896) Diagnoses Obesity (BMI 35.0-39.9 without comorbidity) E66.9 KAREN (obstructive sleep apnea) G47.33 Allergic rhinitis J30.9 Asthma J45.909
== END 2024-04-29 16:16 | disposition home or self-care (01) ==
LOC: HO.HPS 15:50
PROVIDERS: PCP Nurse Practitioner Family; Visit Provider Internal Medicine
DX: E66.9 Obesity, unspecified (principal); G47.33 Obstructive sleep apnea (adult) (pediatric); J30.9 Allergic rhinitis, unspecified; J45.909 Unspecified asthma, uncomplicated
CPT/HCPCS: 99213

== ENCOUNTER 2024-08-05 14:31 | Outpatient (REF) | payer BC, SELFPAY ==
[2024-08-05 16:11] LABS: MANUAL DIFF FLAG NO
[2024-08-05 16:15] LABS: Appearance Urine Turbid; Color Urine Yellow; Glucose Urine UA Negative (Negative); Leukocyte Esterase Urine Negative (Negative); Nitrite Urine Negative (Negative); Specific Gravity - Urine >= 1.030 (1.005-1.025); Urine Blood Negative (Negative); Urine Ketones Negative (Negative); Urine Protein Trace mg/dL (Neg-Trace)
[2024-08-05 16:21] LABS: Basophils Absolute Auto 0.1 X10*3/uL (0.0-0.2); Basophils Percent Auto 0.9 % (0-2); Eosinophils Absolute Auto 0.5 X10*3/uL (0.0-0.4); Eosinophils Percent Auto 6.2 % (0-4); Hematocrit 35.1 % (37.0-47.0); Hemoglobin 11.2 g/dl (12.0-16.0); Imm Gran Abs Auto 0.03 X10*3/uL (0.00-0.03); Imm Gran Pct Auto 0.3 % (0.0-0.4); Lymphocytes Absolute Auto 2.6 X10*3/uL (1.2-4.9); Lymphocytes Percent Auto 29.9 % (20-40); Mean Corpuscular HGB Conc 31.9 g/dl (31.0-35.0); Mean Corpuscular Hemoglobin 25.6 pg (27.0-33.0); Mean Corpuscular Volume 80.1 fL (80.0-98.0); Mean Platelet Volume 10.3 fL (9.4-12.3); Monocytes Absolute Auto 0.7 X10*3/uL (0.1-1.2); Monocytes Percent Auto 7.5 % (2-11); Neutrophils Absolute Auto 4.8 x10*3/uL (2.0-8.3); Neutrophils Percent Auto 55.2 % (45-73); Platelet Count 270 X10*3/uL (160-400); Red Blood Count 4.38 X10*6/uL (4.20-5.50); White Blood Count 8.8 X10*3/uL (4.8-10.8)
[2024-08-05 16:50] LABS: Alanine Aminotransferase 19 U/L (0-31); Albumin Level 3.9 g/dL (3.5-5.0); Alkaline Phosphatase 58 U/L (39-117); Anion Gap 10 (12-20); Aspartate Amino Transferase 19 U/L (5-31); Bilirubin Total 0.6 mg/dL (0.0-1.0); Blood Urea Nitrogen 7 mg/dL (9-16); Calcium 8.2 mg/dL (8.4-10.2); Carbon Dioxide 22 mmol/L (22-29); Chloride 110 mmol/L (96-108); Cholesterol 142 mg/dL (<200); Estimated Glomerular Filt Rate > 60; Glucose Fasting 144 mg/dL (60-99); HDL Cholesterol 56 mg/dL (>40); LDL Cholesterol Calculated 74 mg/dL (<100); Potassium 3.6 mmol/L (3.3-5.1); Sodium 138 mmol/L (135-145); Total Protein 7.5 g/dL (6.5-8.0); Triglycerides 61 mg/dL (<150)
[2024-08-05 17:09] LABS: TSH reflex Free T4 1.84 uIU/mL (0.32-4.0); Vitamin D 25-OH Total 9.3 ng/mL (>30)
== END 2024-08-05 14:32 | disposition home or self-care (01) ==
LOC: HO.HMGCLDS 14:31
PROVIDERS: PCP Nurse Practitioner Family; Visit Provider Nurse Practitioner Family
DX: Z00.00 Encounter for general adult medical examination without abnormal findings (principal); E55.9 Vitamin D deficiency, unspecified; Z13.6 Encounter for screening for cardiovascular disorders
CPT/HCPCS: 36415; 80053; 80061; 81003; 82306; 84443; 85025

== ENCOUNTER 2024-08-19 08:33 | Outpatient (AMB) | payer BC, SELFPAY ==
[2024-08-19 08:39] VITALS: BP 138/82; PULSE 87; TEMP 37; O2SAT 97
--- NOTE | 2024-08-19 08:39 | A.OFFPC_ITS ---
Vital Signs 08/19/24 08:39 Height 5 ft 2 in Weight 20 lb BMI 3.7 BP 138/82 Blood Pressure Location Lt brachial Position Sitting Pulse 87 Pulse Source Pulse Oximeter Temp 98.6 F Temp Source Oral Pulse Oximetry (%) 97 Oxygen Delivery Method Room Air Intake Visit Reasons: PE Intake Note: Pt is here today for her annual Physical. Allergies isopropyl alcohol Adverse Reaction (Severe, Verified 08/19/24 08:55) numbness wherever it touches the skin amoxicillin Adverse Reaction (Unknown, Verified 08/19/24 08:55) yeast infection Medication List - Last Reconciled 08/19/24 by Jose Buchanan, WORKERS' COMPENSATION HEARINGS OFFICER- albuterol sulfate 90 mcg/actuation 2 puffs PO Q6H PRN amlodipine 5 mg PO DAILY 90 days betamethasone dipropionate 0.05% 1 appl topical BID PRN 14 days cetirizine (Zyrtec) 10 mg PO DAILY PRN fluticasone propion-salmeterol 250-50 mcg/dose (Advair Diskus) 1 ea PO BID fluticasone propionate 50 mcg/actuation (Flonase Allergy Relief) 1 spray intranasal BID PRN hydrochlorothiazide 12.5 mg PO DAILY ipratropium-albuterol 0.5 mg-3 mg(2.5 mg base)/3 mL 3 mL inhalation Q6-8H PRN montelukast 10 mg PO BEDTIME nebulizer accessories Q6hrs, prn for wheezing/SOB Tobacco use date assessed: 08/19/24 Dental Screening Dental Screen Date: 08/19/24 Did you have a dental visit in the last 12 months?: Yes Did you have a dental problem in the last 6 months where you did not have access to dental care?: No Was dental information given to patient?: Patient has dentist HPI PE HPI Details History of Present Illness PE: The patient is a 49-year-old female presenting with concerns related to anemia, perimenopausal symptoms, and newly diagnosed Type 2 Diabetes Mellitus. Her recent lab results indicated anemia, and she has been experiencing heavier and irregular periods as associated with ? perimenopausal changes. Her fasting blood sugar was noted at 144 mg/dL, categorizing her as diabetic. She has been informed about the importance of reducing soda intake as part of managing her blood sugar levels. She denies symptoms of polyuria, polydipsia, and neuropathy, with intact sensation in her feet. She has missed previous mammogram and colorectal screening appointments, which are due for rescheduling. Health Maintenance - Referral placed for ophthalmology for diabetic eye examination. - Patient informed on reducing soda cons umption to manage diabetes. - Referral to nurse navigator for diabet es education. - Follow-up mammogram and colorectal scr eening referrals placed. Social History - Consumes soda daily despite diabetes d iagnosis; planning to reduce immediately. Review of Systems - Cardiovascular: Denies any chest pain or shortness of breath. - Gastrointestinal: Denies abdominal suzan n, blood in stool, constipation, or diarrhea. - Neurological: Denies severe fatigue or dizziness. - Endocrine: Reports fasting blood sugar of 144 mg/dL indicating diabetes. - Hematological: Denies any new bleeding ; notes heavier periods. - Psychiatric: Denies any suicidal or ho micidal ideation. Physical Exam General: Cooperative, healthy appearing, comfortable, no acute distress and well developed, obese Orientation: Patient oriented x3 Limitations: No limitations Head: Normal to inspection Ears: Hearing grossly normal bilaterally Nose: Normal external nose present Face and sinus: Normal facial exam Eyes: Appearance normal, both eyes and all related structures Neck: Normal visual inspection and Yes full ROM Respiratory: Normal respiratory effort and able to speak in complete sentences. Clear to auscultation bilaterally Cardiovascular: Regular rate and rhythm. Normal S1 and S2 GI: Normal to inspection. Soft to palpation and nontender Skin: No rashes or lesions noted Neuro: Patient oriented x3 Extremities: Normal to inspection, feet intact bilaterally, positive sensation with use of monofilament Results - Labs: Slight anemia reported; fasting blood sugar 144 mg/dL. Plan Management will involve further evaluation of anemia and symptoms related to perimenopause. Type 2 Diabetes Mellitus will be monitored through additional labs such as A1c and microalbumin, alongside educational support. An ophthalmology referral has been made for diabetic eye health. The patient will reduce soda consumption, and follow-up appointments for mammogram and colon screening have been recommended after previous cancellations. Discussion Notes I discussed the patient's recent diagnosis of anemia and possible perimenopausal symptoms, recommending further lab tests to evaluate these conditions. The new diagnosis of Type 2 Diabetes Mellitus requires additional testing, including an A1c and microalbumin test, and education by a nurse navigator concerning dietary changes and glucose monitoring. I emphasized the importance of reducing soda intake to manage diabetes. Referrals were made for an ophthalmology exam to prevent diabetes-related eye issues, as well as for a follow-up mammogram and colon screening. Follow-up in 4 months was agreed upon, and the patient voiced understanding and support for the outlined management plan. Patient Instructions - Reduce daily soda consumption to help manage diabetes. - Schedule and attend a follow-up mammog paige. - Follow through with the ophthalmology referral for diabetic eye health. - Attend the open access colon screening appointment. - Participate in diabetes education sess ions with the nurse navigator. - Utilize the glucometer if willing, to monitor blood glucose levels. - Return in 4 months for follow-up care. [facility] Medical History KAREN (obstructive sleep apnea) Somnolence, daytime Snoring Obesity (BMI 35.0-39.9 without comorbidity) COPD with asthma Allergic rhinitis Social History Housing: House Patient Tobacco Use Status: Former Tobacco user e-Cigarette/Vaping Use: Never Used Second Hand Smoke Exposure: No service: No Current occupational status: employed Current occupation: retail [employer] Current occupational exposures/hazards: Yes Cognitive needs: No Hearing needs: No Vision needs: No Questionnaire PHQ-9 Over the last 2 weeks, how often have you been bothered by any of the following problems? 1. Little interest or pleasure in doing things: not at all 2. Feeling down, depressed, or hopeless: not at all 3. Trouble falling or staying asleep, or sleeping too much: several days 4. Feeling tired or having little energy: several days 5. Poor appetite or overeating: not at all 6. Feeling bad about yourself - or that you are a failure or have let yourself or your family down: not at all 7. Trouble concentrating on things, such as reading the newspaper or watching television: not at all 8. Moving or speaking so slowly that other people could have noticed. Or the opposite - being so fidgety or restless that you have been moving around a lot more than usual: not at all 9. Thoughts that you would be better off or of hurting yourself in some way: not at all Total score: 2 Depression Screening Interpretation: Negative Depression Screening Done: Yes 65377 - PHQ-9 Billing: Yes Source: Developed by Drs. Brian Roblero, Melody Cates, Tray Mensah and colleagues, with an educational carlos a from [employer]. Thrive Questionnaire Date Thrive assessed: 08/19/24 I am a: Patient What is your living situation today?: I have a steady place to live Within the past 12 months, did the food you bought not last and you didn't have the money to get more?: Never true Within the past 12 months, did you worry whether your food would run out before you got money to buy more?: Never true Do you have trouble paying for medicines?: No Do you have trouble getting transportation to medical appointments?: No Do you have trouble paying your heating and electricity bill?: No Do you have trouble taking care of your child, family member or friend?: No Do you have trouble with day-to-day activities such as bathing, preparing meals, shopping, managing finances, etc.?: No Are you currently unemployed and looking for a job?: No Are you interested in more education?: No Please select the resources that you would like help with: None Currently or been in a relationship where the following occur: No concerns re ported THRIVE Score: 0 AUDIT C Alcohol Use Questionnaire (AUDIT-C) 1. How often do you have a drink containing alcohol?: Monthly or less 2. How many drinks containing alcohol do you have on a typical day when you are drinking?: 1 or 2 3. How often do you have six or more drinks on one occasion?: Never Total Score: 1 Score Reviewed/Action Taken: Yes JOSE L-7 AMB Questionnaire JOSE L-7 Date JOSE L - 7 assessed: 08/19/24 Feeling nervous, anxious, or on edge: 0 = Not at all Not being able to stop or control worryin = Not at all Worrying too much about different things: 1 = Several days Trouble relaxin = Several days Being so restless that it is hard to sit still: 1 = Several days Becoming easily annoyed or irritable: 1 = Several days Feeling afraid as if something awful might happen: 0 = Not at all Total JOSE L-7 score (0-4 normal; 5-9 mild; 10-14 moderate; 15-21 severe): 4 Source: Developed by Drs. Brian Roblero, Melody Cates, Tray Mensah and colleagues, with an educational carlos a from [employer]. JOSE L-7 Assessment Billing JOSE L-7 Assessment Tool: JOSE L-7 Assessment 36180 Physical exam (Primary Care) Vital Signs: Last Vital Signs Temp 98.6 F 08/19/24 08:39 Pulse 87 08/19/24 08:39 BP 138/82 08/19/24 08:39 Pulse Ox 97 08/19/24 08:39 Oxygen Delivery Method Room Air 08/19/24 08:39 BMI result Body Mass Index 3.7 Tobacco/Smoking Status: Tobacco use Status Tobacco use date assessed 08/19/24 08/19/24 08:43 Patient Tobacco Use Status Former Tobacco user 08/19/24 08:43 e-Cigarette/Vaping Use Never Used 08/19/24 08:43 PHQ-9: PHQ-9 Score PHQ-9: Total score 2 08/19/24 08:43 Depression Screening Interpretation: Negative Thrive Assessment: Date of Thrive Assessment Date Thrive assessed 08/19/24 08/19/24 08:43 Currently or been in a relationship where the following occur: No concerns reported Coding Level of Care Code Est Pt Prev Care 40-64y(44372) Diagnoses Physical exam Z00.00 Screening for cervical cancer Z12.4 Diabetes E11.9 Anemia D64.9 Skin lesions L98.9 Additional Codes JOSE L-7 Assessment Billing - JOSE L-7 Assessment Tool: JOSE L-7 Assessment 26067 ([id number]) PHQ-9 - 68076 - PHQ-9 Billing: Yes ([id number]) Assessment & Plan Assessment & Plan (1) Physical exam: Code(s): Z00.00 - Encounter for general adult medical examination without abnormal findings Category: Medical (2) Screening for cervical cancer: Code(s): Z12.4 - Encounter for screening for malignant neoplasm of cervix Category: Medical (3) Diabetes: Code(s): E11.9 - Type 2 diabetes mellitus without complications Category: Medical (4) Anemia: Code(s): D64.9 - Anemia, unspecified Category: Medical (5) Skin lesions: Code(s): L98.9 - Disorder of the skin and subcutaneous tissue, unspecified Category: Medical Plan . Orders: Orders MM screening mammo BI Today Z12.31 - Encounter for screening mammogram for malignant neoplasm of breast Hemoglobin A1c Today E11.9 - Type 2 diabetes mellitus without complications Ferritin Today D64.9 - Anemia, unspecified Vitamin B12 and Folate Today D64.9 - Anemia, unspecified Reticulocyte Count Today D64.9 - Anemia, unspecified Microalbumin, Random (w Creat) Today E11.9 - Type 2 diabetes mellitus without complications Complete Blood Count Auto Diff Today D64.9 - Anemia, unspecified Lactate Dehydrogenase Today D64.9 - Anemia, unspecified Referrals Open Access Screening Colonoscopy Referral Z12.11 - Encounter for screening for malignant neoplasm of colon, Z12.12 - Encounter for screening for malignant neoplasm of rectum Nurse Navigator Referral E11.9 - Type 2 diabetes mellitus without complications Ophthalmology Referral E11.9 - Type 2 diabetes mellitus without complications HOME ECONOMICS EXTENSION WORKER Referral Z12.4 - Encounter for screening for malignant neoplasm of cervix Dermatology Referral L98.9 - Disorder of the skin and subcutaneous tissue, unspecified Medications: New betamethasone dipropionate 0.05% 1 appl topical DAILY PRN 45 grams 0RF skin irritation cholecalciferol (vitamin D3) 50 mcg PO DAILY 90 caps 0RF
== END 2024-08-19 09:21 | disposition home or self-care (01) ==
PROVIDERS: PCP Nurse Practitioner Family; Visit Provider Nurse Practitioner Family
DX: Z00.00 Encounter for general adult medical examination without abnormal findings (principal); Z12.4 Encounter for screening for malignant neoplasm of cervix; E11.9 Type 2 diabetes mellitus without complications; D64.9 Anemia, unspecified; L98.9 Disorder of the skin and subcutaneous tissue, unspecified

== ENCOUNTER 2024-08-19 08:33 | Outpatient (REF) | payer BC, SELFPAY ==
[2024-08-19 13:39] LABS: MANUAL DIFF FLAG NO
[2024-08-19 13:50] LABS: Basophils Percent Auto 0.5 % (0-2); Eosinophils Absolute Auto 0.4 X10*3/uL (0.0-0.4); Eosinophils Percent Auto 5.3 % (0-4); Hematocrit 33.9 % (37.0-47.0); Hemoglobin 10.7 g/dl (12.0-16.0); Imm Gran Abs Auto 0.03 X10*3/uL (0.00-0.03); Imm Gran Pct Auto 0.4 % (0.0-0.4); Immature Retic Fraction 22.5 % (3.0-15.9); Lymphocytes Absolute Auto 2.2 X10*3/uL (1.2-4.9); Lymphocytes Percent Auto 29.7 % (20-40); Mean Corpuscular HGB Conc 31.6 g/dl (31.0-35.0); Mean Corpuscular Hemoglobin 25.7 pg (27.0-33.0); Mean Corpuscular Volume 81.5 fL (80.0-98.0); Mean Platelet Volume 10.4 fL (9.4-12.3); Monocytes Absolute Auto 0.5 X10*3/uL (0.1-1.2); Monocytes Percent Auto 6.3 % (2-11); Neutrophils Absolute Auto 4.2 x10*3/uL (2.0-8.3); Neutrophils Percent Auto 57.8 % (45-73); Platelet Count 340 X10*3/uL (160-400); Red Blood Count 4.16 X10*6/uL (4.20-5.50); Red Cell Distribution Width 13.8 % (11.0-16.0); Retic HGB Equivalent 29.1 pg (30.0-35.0); Reticulocyte Percent 1.9 % (0.5-1.8); Reticulocytes Absolute 0.077 X10*6/uL (0.026-0.095); White Blood Count 7.3 X10*3/uL (4.8-10.8)
[2024-08-19 13:53] LABS: Estimated Average Glucose 183 mg/dL
[2024-08-19 14:06] LABS: Lactate Dehydrogenase 295 U/L (122-220)
[2024-08-19 14:15] LABS: Creatinine Urine 150.55 mg/dL; Microalbum/Creatinine Ratio Ur 16.6 ug/mg cr (<30)
[2024-08-19 14:19] LABS: Ferritin 12 ng/mL (10-250)
[2024-08-19 14:33] LABS: Folate 7.8 ng/mL (> or = 4.0); Vitamin B12 396 pg/mL (200-900)
== END 2024-08-19 08:34 | disposition home or self-care (01) ==
LOC: HO.HMGCLDS 08:33
PROVIDERS: PCP Nurse Practitioner Family; Visit Provider Nurse Practitioner Family
DX: J45.909 Unspecified asthma, uncomplicated (principal); G47.33 Obstructive sleep apnea (adult) (pediatric); R06.83 Snoring; Z00.01 Encounter for general adult medical examination with abnormal findings; E11.9 Type 2 diabetes mellitus without complications; D64.9 Anemia, unspecified; L98.9 Disorder of the skin and subcutaneous tissue, unspecified
CPT/HCPCS: 36415; 82043; 82570; 82607; 82728; 82746; 83036; 83615; 85025; 85045; 96127

== ENCOUNTER 2024-08-19 15:54 | Outpatient (AMB) | payer BC, SELFPAY ==
[2024-08-19 16:08] VITALS: BP 130/80; PULSE 96; O2SAT 96; BMI 37.9
--- NOTE | 2024-08-19 16:08 | MHC.OFFVIS ---
Vital Signs 08/19/24 16:08 Height 5 ft 2 in Weight 207 lb 3.752 oz BMI 37.9 BP 130/80 Blood Pressure Location Lt brachial Position Sitting Pulse 96 Pulse Source Pulse Oximeter Pulse Oximetry (%) 96 Oxygen Delivery Method Room Air Intake Visit Reasons: asthma/sarah Intake Note: pt is here for follow up and states she has some daytime fatigue, she is still snoring. can you please send in allergy pill that she can try to get covered by insurance, loratidine makes her tired. please send in refill for albuterol hfa. 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 Allergies isopropyl alcohol Adverse Reaction (Severe, Verified 08/19/24 16:29) numbness wherever it touches the skin amoxicillin Adverse Reaction (Unknown, Verified 08/19/24 16:29) yeast infection Medication List - Last Reconciled 08/19/24 by Eunice Isidro MD albuterol sulfate 90 mcg/actuation 2 puffs PO Q6H PRN amlodipine 5 mg PO DAILY 90 days betamethasone dipropionate 0.05% 1 appl topical BID PRN 14 days betamethasone dipropionate 0.05% 1 appl topical DAILY PRN cetirizine (Zyrtec) 10 mg PO DAILY PRN cholecalciferol (vitamin D3) 50 mcg PO DAILY fluticasone propion-salmeterol 250-50 mcg/dose (Advair Diskus) 1 ea PO BID fluticasone propionate 50 mcg/actuation (Flonase Allergy Relief) 1 spray intranasal BID PRN hydrochlorothiazide 12.5 mg PO DAILY ipratropium-albuterol 0.5 mg-3 mg(2.5 mg base)/3 mL 3 mL inhalation Q6-8H PRN montelukast 10 mg PO BEDTIME nebulizer accessories Q6hrs, prn for wheezing/SOB Do you need a note to return to daycare/school/sports/work: No HPI HPI asthma/sarah: Details: 49 years old female comes for. follow-up after 4 months She continues to complain of excessive snoring, poor quality of sleep and feeling of tiredness and sleepy during the daytime. Her sleep study did show obstructive sleep apnea but mild and we had decided to treat her with conservative measures to start with. She has try to sleep in lateral position. Has not succeeded. In losing any weight And she wants to try CPAP. 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[employer] Current occupational exposures/hazards: Yes Cognitive needs: No Hearing needs: No Vision needs: No Review of Systems Const All systems reviewed & are unremarkable except as noted in HPI and below Eyes Reports no additional complaints ENT Reports nasal congestion (MILD ALMOST ON DAILY BASIS) Card Denies chest pain, Denies irregular heart rhythm and Denies leg edema Resp Reports as per HPI GI Reports no additional complaints Reports no additional complaints Musc Reports no additional complaints Skin/Breast Reports system reviewed and no additional complaints, except as documented Neuro Reports no additional complaints Psych Reports no additional complaints Physical Exam Vital Signs: Last Vital Signs Pulse 96 08/19/24 16:08 BP 130/80 08/19/24 16:08 Pulse Ox 96 08/19/24 16:08 Oxygen Delivery Method Room Air 08/19/24 16:08 BMI result Body Mass Index 37.9 Const General: healthy appearing (Except for being overweight), comfortable, no acute distress, alert and awake Orientation/consciousness: patient oriented x3 HEENT Head: Yes normal to inspection General nose exam: No nasal polyps present, No nasal discharge present and Other nasal findings present (Mild nasal congestion) Face and sinus: Yes sinuses nontender Mouth: oropharynx abnormals (OROPHARYNX IS CROWDED, MALLAMPATI CLASS 4) Throat: Yes posterior oropharynx normal Eyes General: appearance normal, both eyes and all related structures Neck Neck: Yes normal visual inspection, Yes no lymphadenopathy, Yes trachea midline, Yes no JVD and Yes other (NECK CIRCUMFERENCE 15 IN) Thyroid: Thyroid normal Chest Chest palpation & inspection: normal inspection of the chest, normal palpation of entire chest wall and no tenderness Resp Other: Percussion note resonant, has good breath sounds on both sides. A few fine inspiratory wheezes heard over the upper part of the chest, no crepitations. Cardio Palpation: normal PMI Rate: regular rate Rhythm: regular rhythm Heart sounds: no gallops and no murmurs Peripheral pulses: Peripheral pulses 2+ throughout GI Palpation (GI): Soft to palpation, nontender, No hepatosplenomegaly present and no masses Auscultation: normal bowel sounds Back/Spine/Pelvis Thoracic/Lumbar Spine: thoracic and lumbar spine normal to inspection Skin General skin exam: no rashes or lesions noted Neuro General: patient oriented x3 and no focal motor deficits Cranial nerves: Yes CN's II-XII intact bilaterally Extrem General: Yes normal to inspection, Yes no clubbing, cyanosis or edema and Yes no calf tenderness Psych Appearance: grossly normal and well kempt Speech and movement: Normal speech and movement present Results Reviewed Results Reviewed: Results of home-based sleep study are reviewed once again. Total sleep time AHI 6.3. Supine position AHI 10.8 and lateral position AHI 6.2, snoring was for 56% of the sleep Assessment & Plan Assessment & Plan (1) Asthma: Comment: Bronchial asthma goes along with allergic rhinitis. Two cats in the house seem to be the most likely cause of her bronchial asthma. As she would not get rid of the cats I advised that at least keep them out of the BED ROOM . Code(s): J45.909 - Unspecified asthma, uncomplicated Category: Medical Plan: Continue to use Wixela 250-51 inhalation b.i.d.. Montelukast. 10 mg daily Albuterol HFA 2 puffs Q 6 hours p.r.n. (2) Allergic rhinitis: Comment: This patient has long-standing history of allergic rhinitis, Most prominent trigger is pets ( 2 cats ) in the house. May have other multiple triggers also. I have given her a list of possible triggers that she should watch for. Patient is not inclined to remove the cats from the house. Code(s): J30.9 - Allergic rhinitis, unspecified Category: Medical Plan: Patient tries to keep it distance from the cats but still has ongoing nasal stuffiness at night and bronchial asthma. Advised to continue montelukast, 10 mg daily use cetirizine or loratadine 10 mg once a day p.r.n.. Use Flonase 2 spray in each nostril daily (3) SARAH (obstructive sleep apnea): Comment: Sleep study shows that she does have obstructive sleep apnea but mild with total sleep time AHI 6.3. Is mostly positional. Patient has tried to use conservative measures, she has not been able to lose much weight. She sleeps in lateral position. Still remains symptomatic, with poor sleep at night, lot of snoring and with daytime fatigue and sleepiness. Code(s): G47.33 - Obstructive sleep apnea (adult) (pediatric) Category: Medical Plan: Because of persistent symptoms will go ahead and order a CPAP for her. She would need fullface mask because of. Her partial nasal blockage Instructions about the CPAP are given. Will continue to monitor compliance and benefits. (4) Snoring: Comment: Complains of loud snoring at night, as told by. Her boyfriend, and confirmed by the sleep study ( 56 % of sleep time ) Code(s): R06.83 - Snoring Category: Medical Plan: She is being started on CPAP and I think that will take care of the snoring. Coding Level of Care Code Est Pt Level 3 (75261) Diagnoses Asthma J45.909 Allergic rhinitis J30.9 SARAH (obstructive sleep apnea) G47.33 Snoring R06.83
== END 2024-08-19 16:38 | disposition home or self-care (01) ==
PROVIDERS: PCP Nurse Practitioner Family; Visit Provider Internal Medicine
DX: J45.909 Unspecified asthma, uncomplicated (principal); J30.9 Allergic rhinitis, unspecified; G47.33 Obstructive sleep apnea (adult) (pediatric); R06.83 Snoring
CPT/HCPCS: 99213

== ENCOUNTER 2024-10-21 10:15 | Outpatient (REF) | payer BC, SELFPAY | END 2024-10-21 10:16 | disposition home or self-care (01) | LOC: HO.MAMMO 10:15 | PROVIDERS: PCP Nurse Practitioner Family; Visit Provider Nurse Practitioner Family | DX: Z12.31 Encounter for screening mammogram for malignant neoplasm of breast (principal) | CPT/HCPCS: 77063; 77067 ==

== ENCOUNTER → 2024-10-21 10:15 | Outpatient (BNV) | payer BC, SELFPAY | PROVIDERS: PCP Nurse Practitioner Family; Visit Provider Internal Medicine | DX: Z12.31 Encounter for screening mammogram for malignant neoplasm of breast (principal) | CPT/HCPCS: 77063; 77067 ==

== ENCOUNTER 2024-12-23 10:24 | Outpatient (AMB) | payer BC, SELFPAY ==
[2024-12-23 10:26] VITALS: BP 132/78; PULSE 76; O2SAT 97; BMI 36.6
--- NOTE | 2024-12-23 10:26 | A.OFFPC_ITS ---
Vital Signs 12/23/24 10:26 Height 5 ft 2 in Weight 200 lb BMI 36.6 BP 132/78 Blood Pressure Location Lt brachial Position Sitting Pulse 76 Pulse Source Pulse Oximeter Pulse Oximetry (%) 97 Oxygen Delivery Method Room Air Intake Visit Reasons: 4m f/u Animal Scientist Required: No Accompanied by: Self / Same As Patient Allergies isopropyl alcohol Adverse Reaction (Severe, Verified 12/23/24 11:24) numbness wherever it touches the skin amoxicillin Adverse Reaction (Unknown, Verified 12/23/24 11:24) yeast infection Medication List - Last Reconciled 12/23/24 by Jose Buchanan, PERSONAL INJURY LEGAL ASSISTANT-BC albuterol sulfate 90 mcg/actuation 2 puffs PO Q6H PRN amlodipine 5 mg PO DAILY betamethasone dipropionate 0.05% 1 appl topical DAILY PRN cetirizine (Zyrtec) 10 mg PO DAILY PRN cholecalciferol (vitamin D3) 50 mcg PO DAILY Contour Next Gen Meter (blood-glucose meter) As directed NS Contour Next Test Strips (blood sugar diagnostic) test blood sugar once a day NS fluticasone propion-salmeterol 250-50 mcg/dose (Advair Diskus) 1 ea PO BID fluticasone propionate 50 mcg/actuation (Flonase Allergy Relief) 1 spray intranasal BID PRN hydrochlorothiazide 12.5 mg PO DAILY ipratropium-albuterol 0.5 mg-3 mg(2.5 mg base)/3 mL 3 mL inhalation Q6-8H PRN lancets (Microlet Lancet) Test blood sugar once a day montelukast 10 mg PO BEDTIME nebulizer accessories Q6hrs, prn for wheezing/SOB Tobacco use date assessed: 08/19/24 Dental Screening Dental Screen Date: 08/19/24 HPI 4m f/u HPI Details Diagnosed with diabetes months ago. There was an issue with NN follow up, though pt received info from the mail, but hasnt opened it. I went over the diabetes process with the pt today. Will start a statin and a TEX. Will also start mounjaro, major side effects and contraindications I went over. 8.6 A1c today. Pt reports having an eye exam recently, denies any neuropathy, polyuria, polydipsia. Pt reports understanding the s/s of hypoglycemia and how to corrrec t it. I will see her again in 4 months for a follow up, and encouraged her to get her labs drawn. Encouraged her working on her diet, watching out for bad carbs and sugars in general. [facility] Medical History KAREN (obstructive sleep apnea) Somnolence, daytime Snoring Obesity (BMI 35.0-39.9 without comorbidity) COPD with asthma Allergic rhinitis Social History Housing: House Patient Tobacco Use Status: Former Tobacco user e-Cigarette/Vaping Use: Never Used Second Hand Smoke Exposure: No service: No Current occupational status: employed Current occupation: [employer] Current occupational exposures/hazards: Yes Cognitive needs: No Hearing needs: No Vision needs: No Questionnaire PHQ-9 Over the last 2 weeks, how often have you been bothered by any of the following problems? 2. Feeling down, depressed, or hopeless: not at all 5. Poor appetite or overeating: not at all Source: Developed by Drs. Brian Roblero, Melody Cates, Tray Mensah and colleagues, with an educational carlos a from [employer]. Thrive Questionnaire Date Thrive assessed: 08/19/24 I am a: Patient What is your living situation today?: I have a steady place to live Within the past 12 months, did the food you bought not last and you didn't have the money to get more?: Never true Within the past 12 months, did you worry whether your food would run out before you got money to buy more?: Never true Do you have trouble paying for medicines?: No Do you have trouble getting transportation to medical appointments?: No Do you have trouble paying your heating and electricity bill?: No Do you have trouble taking care of your child, family member or friend?: No Do you have trouble with day-to-day activities such as bathing, preparing meals, shopping, managing finances, etc.?: No Are you currently unemployed and looking for a job?: No Are you interested in more education?: No Please select the resources that you would like help with: None Currently or been in a relationship where the following occur: No concerns reported THRIVE Score: 0 JOSE L-7 AMB Questionnaire JOSE L-7 Date JOSE L - 7 assessed: 08/19/24 Source: Developed by DrsLisa Roblero, Melody Cates, Tray Mensah and colleagues, with an educational carlos a from [employer]. Review of Systems Card Denies chest pain at rest and Denies chest pain with activity Skin/Breast Denies changing lesions Physical exam (Primary Care) Vital Signs: Last Vital Signs Pulse 76 12/23/24 10:26 BP 132/78 12/23/24 10:26 Pulse Ox 97 12/23/24 10:26 Oxygen Delivery Method Room Air 12/23/24 10:26 BMI result Body Mass Index 36.6 Tobacco/Smoking Status: Tobacco use Status Tobacco use date assessed 08/19/24 12/23/24 10:27 Patient Tobacco Use Status Former Tobacco user 12/23/24 10:27 e-Cigarette/Vaping Use Never Used 12/23/24 10:27 Thrive Assessment: Date of Thrive Assessment Date Thrive assessed 08/19/24 12/23/24 10:27 Currently or been in a relationship where the following occur: No concerns reported Results AMB Hemoglobin A1c AMB Hemoglobin A1c 8.6 % Last Edit by Dixon Woodward CMA on 12/23/24 10: 45 Results Reviewed Results Reviewed: Laboratory Last Values Hgb A1c (Clinic) 8.6 % (4.0-6.0) H 12/23/24 10:35 Coding Level of Care Code Est Pt Level 4 (76332) Diagnoses Diabetes E11.9 Assessment & Plan Assessment & Plan (1) Diabetes: Code(s): E11.9 - Type 2 diabetes mellitus without complications Category: Medical Plan . Orders: Orders AMB Hemoglobin A1c Today Z13.9 - Encounter for screening, unspecified Complete Blood Count Auto Diff Today E11.9 - Type 2 diabetes mellitus without complications Comprehensive [place]. Panel Fast Today E11.9 - Type 2 diabetes mellitus without complications TSH reflex Free T4 Today E11.9 - Type 2 diabetes mellitus without complications UA CC w/rflx Micro + Cult Today E11.9 - Type 2 diabetes mellitus without complications Lipid Panel Today E11.9 - Type 2 diabetes mellitus without complications Microalbumin, Random (w Creat) Today E11.9 - Type 2 diabetes mellitus without complications Medications: New atorvastatin (Lipitor) 10 mg PO BEDTIME 90 tabs 0RF 90 days lisinopril 2.5 mg PO DAILY 90 tabs 0RF 90 days tirzepatide (Mounjaro) for 4 weeks 2.5 mg (0.5 mL) subcut QWEEK 2 mL 0RF
--- OUTSIDE RECORDS SUMMARY | 2024-12-23 10:59 | XMS_ITS | Patient Health Record ---
Author Organization [facility] Address [address] [place] [address] Care Team Providers Care Spout Tender Name Role Phone Jose Card Primary Care Provider Unav ailable Black, Kristy Unavailable [phone] Reason For Referral No Information Medications Medication SIG (Take, Route, Frequency, Duration) Notes Start Date End Date Status Advair HFA Active ProAir HFA Active Problems No Known Problems Plan Of Treatment No Information Insurance Providers Payer Name Payer Address Payer Phone Subscriber Number Group Number Insured Name Patient Relationship to Insured Coverage Start Date Coverage End Date Whitney All Others [address] [place] [address] [phone] [id number] Ganesh Krishna Self - patient is the insured Medical (General) History Medical History History ICD Code asthma Back,Hip,and Knee pain Chicken pox
== END 2024-12-23 11:20 | disposition home or self-care (01) ==
LOC: HO.HMCC 10:25
PROVIDERS: PCP Nurse Practitioner Family; Visit Provider Nurse Practitioner Family
DX: E11.9 Type 2 diabetes mellitus without complications (principal); Z13.9 Encounter for screening, unspecified

== ENCOUNTER → 2024-12-23 10:24 | Outpatient (BNVA) | payer BC, SELFPAY | PROVIDERS: PCP Nurse Practitioner Family; Visit Provider Nurse Practitioner Family | DX: E11.9 Type 2 diabetes mellitus without complications (principal) | CPT/HCPCS: 83036 ==

== ENCOUNTER 2025-01-19 16:05 | Outpatient (AMB) | payer BC, SELFPAY ==
[2025-01-19 16:13] VITALS: BP 120/68; PULSE 103; O2SAT 98; BMI 36.1
--- NOTE | 2025-01-19 16:13 | A.OFFVIS_ITS ---
Vital Signs 01/19/25 16:13 Height 5 ft 2 in Weight 197 lb 5.019 oz BMI 36.1 BP 120/68 Blood Pressure Location Lt brachial Position Sitting Pulse 103 H Pulse Source Pulse Oximeter Pulse Oximetry (%) 98 Oxygen Delivery Method Room Air Intake Visit Reasons: Asthma Intake Note: pt is here for follow up and states asthma is good Hand Spray Operator Required: No Allergies isopropyl alcohol Adverse Reaction (Severe, Verified 01/19/25 16:21) numbness wherever it touches the skin amoxicillin Adverse Reaction (Unknown, Verified 01/19/25 16:21) yeast infection Medication List - Last Reconciled 01/19/25 by Eunice Isidro MD albuterol sulfate 90 mcg/actuation 2 puffs PO Q6H PRN amlodipine 5 mg PO DAILY atorvastatin (Lipitor) 10 mg PO BEDTIME 90 days betamethasone dipropionate 0.05% 1 appl topical DAILY PRN cetirizine (Zyrtec) 10 mg PO DAILY PRN cholecalciferol (vitamin D3) 50 mcg PO DAILY Contour Next Gen Meter (blood-glucose meter) As directed NS Contour Next Test Strips (blood sugar diagnostic) test blood sugar once a day NS fluticasone propion-salmeterol 250-50 mcg/dose (Advair Diskus) 1 ea PO BID fluticasone propionate 50 mcg/actuation (Flonase Allergy Relief) 1 spray intranasal BID PRN hydrochlorothiazide 12.5 mg PO DAILY ipratropium-albuterol 0.5 mg-3 mg(2.5 mg base)/3 mL 3 mL inhalation Q6-8H PRN lancets (Microlet Lancet) Test blood sugar once a day lisinopril 2.5 mg PO DAILY 90 days montelukast 10 mg PO BEDTIME nebulizer accessories Q6hrs, prn for wheezing/SOB tirzepatide (Mounjaro) 2.5 mg (0.5 mL) subcut QWEEK Do you need a note to return to daycare/school/sports/work: No HPI HPI Asthma: Details: This 49 years old female is here for follow-up on bronchial asthma. Since last visit she is on Wixela 250-50 1 inhalation b.i.d. and she has been actually using 2 inhalations both in the morning. She say she has had no further attacks of asthma. Feels good. She has to use albuterol only once in a. She is also a case of mild obstructive sleep apnea, on her last visit she expressed her wish to start the CPAP, which was ordered. But later on she decided not to use it. And she is sleeping okay. Her sleep apnea was very mild with total sleep time AHI only 6. She she is trying to lose weight slowly. [facility] Medical History KAREN (obstructive sleep apnea) Somnolence, daytime Snoring Obesity (BMI 35.0-39.9 without comorbidity) COPD with asthma Allergic rhinitis Social History Housing: House Patient Tobacco Use Status: Former Tobacco user e-Cigarette/Vaping Use: Never Used Second Hand Smoke Exposure: No service: No Current occupational status: employed Current occupation: retail mgr Current occupational exposures/hazards: Yes Cognitive needs: No Hearing needs: No Vision needs: No Review of Systems Const All systems reviewed & are unremarkable except as noted in HPI and below Eyes Reports no additional complaints ENT Reports nasal congestion (MILD ALMOST ON DAILY BASIS) Card Denies chest pain, Denies irregular heart rhythm and Denies leg edema Resp Reports as per HPI GI Reports no additional complaints Reports no additional complaints Musc Reports no additional complaints Skin/Breast Reports system reviewed and no additional complaints, except as documented Neuro Reports no additional complaints Psych Reports no additional complaints Physical Exam Vital Signs: Last Vital Signs Pulse 103 H 01/19/25 16:13 BP 120/68 01/19/25 16:13 Pulse Ox 98 01/19/25 16:13 Oxygen Delivery Method Room Air 01/19/25 16:13 BMI result Body Mass Index 36.1 Const General: healthy appearing (Except for being overweight), comfortable, no acute distress, alert and awake Orientation/consciousness: patient oriented x3 HEENT Head: Yes normal to inspection General nose exam: No nasal polyps present, No nasal discharge present and Other nasal findings present (Mild nasal congestion) Face and sinus: Yes sinuses nontender Mouth: oropharynx abnormals (OROPHARYNX IS CROWDED, MALLAMPATI CLASS 4) Throat: Yes posterior oropharynx normal Eyes General: appearance normal, both eyes and all related structures Neck Neck: Yes normal visual inspection, Yes no lymphadenopathy, Yes trachea midline, Yes no JVD and Yes other (NECK CIRCUMFERENCE 15 IN) Thyroid: Thyroid normal Chest Chest palpation & inspection: normal inspection of the chest, normal palpation of entire chest wall and no tenderness Resp Other: Percussion note resonant, has good breath sounds on both sides. A few fine inspiratory wheezes heard over the upper part of the chest, no crepitations. Cardio Palpation: normal PMI Rate: regular rate Rhythm: regular rhythm Heart sounds: no gallops and no murmurs Peripheral pulses: Peripheral pulses 2+ throughout GI Palpation (GI): Soft to palpation, nontender, No hepatosplenomegaly present and no masses Auscultation: normal bowel sounds Back/Spine/Pelvis Thoracic/Lumbar Spine: thoracic and lumbar spine normal to inspection Skin General skin exam: no rashes or lesions noted Neuro General: patient oriented x3 and no focal motor deficits Cranial nerves: Yes CN's II-XII intact bilaterally Extrem General: Yes normal to inspection, Yes no clubbing, cyanosis or edema and Yes no calf tenderness Psych Appearance: grossly normal and well kempt Speech and movement: Normal speech and movement present Assessment & Plan Assessment & Plan (1) COPD with asthma: Comment: This patient has long-standing history of bronchial asthma, which has now phased into chronic obstructive pulmonary disease. This is also in most part perpetuated by having cats in the house, plus other non identified triggers. Now that she is using Wixela 250-52 inhalations daily her asthma is well controlled and she feels much better. Code(s): J44.9 - Chronic obstructive pulmonary disease, unspecified Category: Medical Plan: Advised to stay away from the cats. Advised to use Wixela 250-51 inhalation in the morning 1 in the evening . Albuterol HFA 2 puffs Q 6 hours only p.r.n. (2) KAREN (obstructive sleep apnea): Comment: Sleep study shows that she does have obstructive sleep apnea but mild with total sleep time AHI 6.3. Is mostly positional. Patient has tried to use conservative measures, she has not been able to lose much weight. She sleeps in lateral position. On the last visit patient has expressed that she was still having difficulty in sleeping. And wanted to go on CPAP therapy . Which was prescribed However she then decided not to use the CPAP. Claims that she is sleeping better. She is trying to lose weight. Code(s): G47.33 - Obstructive sleep apnea (adult) (pediatric) Category: Medical Plan: Again advised to sleep in lateral position and also keep on losing some weight (3) Allergic rhinitis: Comment: This patient has long-standing history of allergic rhinitis, Most prominent trigger is pets ( 2 cats ) in the house. May have other multiple triggers also. I have given her a list of possible triggers that she should watch for. Patient is not inclined to remove the cats from the house. Code(s): J30.9 - Allergic rhinitis, unspecified Category: Medical Plan: May use Flonase-52 spray in each nostril daily And use Zyrtec 10 mg once a day p.r.n. Coding Level of Care Code Est Pt Level 3 (32392) Diagnoses COPD with asthma J44.9 KAREN (obstructive sleep apnea) G47.33 Allergic rhinitis J30.9
--- OUTSIDE RECORDS SUMMARY | 2025-01-19 16:40 | XMS_ITS | Patient Health Record ---
Author Organization [facility] Address [address] [place] [address] Care Team Providers Care Supervisor [place] Name Role Phone Jose Card Primary Care Provider Unav ailable Black, Kristy Unavailable [phone] Reason For Referral No Information Medications Medication SIG (Take, Route, Frequency, Duration) Notes Start Date End Date Status Advair HFA Active ProAir HFA Active Problems No Known Problems Plan Of Treatment No Information Insurance Providers Payer Name Payer Address Payer Phone Subscriber Number Group Number Insured Name Patient Relationship to Insured Coverage Start Date Coverage End Date Whitney All Others [address] [place] [address] [phone] [id number] Ganesh Krishna Self - patient is the insured Medical (General) History Medical History History ICD Code asthma Back,Hip,and Knee pain Chicken pox
== END 2025-01-19 16:27 | disposition home or self-care (01) ==
LOC: HO.HPS 16:05
PROVIDERS: PCP Nurse Practitioner Family; Visit Provider Internal Medicine
DX: J44.9 Chronic obstructive pulmonary disease, unspecified (principal); G47.33 Obstructive sleep apnea (adult) (pediatric); J30.9 Allergic rhinitis, unspecified
CPT/HCPCS: 99213